=== PATIENT | male | born 2000 ===

== ENCOUNTER 2023-05-08 09:48 | Inpatient (IN) | payer OTHER ==
[~2023-05-08] VITALS: Ht 180.3 cm; Wt 65.8 kg
[2023-05-08 11:29] LABS: BASOPHILS % (AUTO) 0.3 % (0.0-2.0); EOSINOPHILS % (AUTO) 0.2 % (1.0-6.0); HEMATOCRIT 39.4 % (41-53); HEMOGLOBIN 13.5 g/dL (13.5-17.5); LYMPHOCYTES # (AUTO) 1.1 K/uL (1.0-4.8); MEAN CORPUSCULAR HEMOGLOBIN 33.3 pg (26.0-34.0); MEAN CORPUSCULAR HGB CONC 34.4 G/dL (31.0-37.0); MEAN CORPUSCULAR VOLUME 97 fL (80-100); MONOCYTES # (AUTO) 0.9 K/uL (0.1-1.0); MONOCYTES % (AUTO) 9.3 % (2.0-9.0); NEUTROPHILS # (AUTO) 7.5 K/uL (1.8-7.7); NEUTROPHILS % (AUTO) 78.2 % (40.0-70.0); PLATELET COUNT (AUTO) 245 K/uL (150-450); RED BLOOD CELL COUNT(AUTO) 4.07 MIL/uL (4.50-5.90); RED CELL DISTRIBUTION WIDTH 13.3 % (11.5-14.5); WHITE BLOOD COUNT (AUTO) 9.6 K/uL (4.5-11.0)
[2023-05-08 11:44] LABS: ANION GAP 12 mmol/L (8-16); CALCIUM, TOTAL 9.8 mg/dL (8.8-10.5); CARBON DIOXIDE 23 mmol/L (22-29); CHLORIDE 101 mmol/L (98-107); CREATININE 0.98 mg/dL (0.60-1.30); GLOMERULAR FILTR. RATE CALC > 60 mL/min (>60); GLUCOSE,RANDOM 97 mg/dL (70-110); POTASSIUM 3.3 mmol/L (3.5-5.1); SODIUM SERUM 136 mmol/L (136-145); UREA NITROGEN, BLOOD 15 mg/dL (7-18)
[2023-05-08 11:54] LABS: ALANINE AMINOTRANSFERASE 30 U/L (12-78); ALBUMIN 4.8 g/dL (3.4-5.0); ALCOHOL, BLOOD (SERUM) < 3 mg/dL (0-10); ALKALINE PHOSPHATASE 82 U/L (46-116); ASPARTATE AMINOTRANSFERASE 25 U/L (15-37); BILIRUBIN,TOTAL 3.2 mg/dL (0.1-1.0); TOTAL PROTEIN, SERUM 8.4 g/dL (6.4-8.2)
[2023-05-08] MEDS: DiphenhydrAMINE HCL 50 MG/ML VIAL IM ONE (12:14)
[2023-05-08] MEDS: LORazepam 2 MG/ML VIAL IM ONE (12:14)
[2023-05-08] MEDS: HALOPERIDOL LACTATE 5 MG/ML VIAL IM ONE (12:15)
[2023-05-08] MEDS: POTASSIUM CHLORIDE 10% 40 MEQ/30 ML LIQUID UDCUP PO ONE (12:57)
[2023-05-08 13:09] LABS: COVID AG,FIA SOURCE NASAL SWAB
[2023-05-08 13:35] LABS: SARS-COV2 (COVID) ANTIGEN,FIA Negative (Negative)
[2023-05-08 18:11] LABS: GLUCOMETER DEV NAME(LOC) ERT.5; GLUCOSE,POINT OF CARE 102 MG/DL (70-110)
[2023-05-08] MEDS ORDERED: INFLUENZA VIRUS VACCINE QVS 2023-24 (6MO+)/PF 60 MCG/0.5 ML SYRINGE IM. ONE (19:15)
[2023-05-08 19:22] VITALS: BP 123/91; PULSE 104; RESP 17; TEMP 97; O2SAT 96
[2023-05-08 20:14] VITALS: BP 123/91; PULSE 100; RESP 17; TEMP 98; O2SAT 97
[2023-05-09] MEDS: ZOLPIDEM TARTRATE 10 MG TABLET PO PRN (00:43)
[2023-05-09] MEDS: LORazepam 2 MG TABLET PO PRN (08:44)
[2023-05-09] MEDS: HALOPERIDOL 5 MG TABLET PO PRN (08:44)
[2023-05-09 09:33] VITALS: BP 130/89; PULSE 120; RESP 18; TEMP 97.9; O2SAT 95
[2023-05-09] MEDS: RisperiDONE 1 MG TABLET PO SCH (10:27)
[2023-05-09] MEDS ORDERED: CloNIDine HCL 0.1 MG TABLET PO PRN (18:45)
[2023-05-09] MEDS ORDERED: ALBUTEROL SULFATE HFA 90 MCG/PUFF 8 GM INHALER IH PRN (18:45)
[2023-05-09] MEDS ORDERED: DOCUSATE SODIUM 100 MG CAPSULE PO PRN (18:45)
[2023-05-09] MEDS ORDERED: NICOTINE 14 MG/24 HOUR PATCH TD PRN (18:45)
[2023-05-09] MEDS ORDERED: GuaiFENesin/D-METHORPHAN [SUGAR-FREE] 200-20MG/10 ML SYRUP UDCUP PO PRN (18:45)
[2023-05-09] MEDS ORDERED: PETROLATUM,WHITE 28 GM JELLY TP PRN (18:45)
[2023-05-09] MEDS ORDERED: LOPERAMIDE HCL 2 MG CAPSULE PO PRN (18:45)
[2023-05-09] MEDS ORDERED: IBUPROFEN 400 MG TABLET PO PRN (18:45)
[2023-05-09] MEDS ORDERED: MAGNESIUM HYDROXIDE SUSPENSION 30 ML UDCUP PO PRN (18:45)
[2023-05-09] MEDS ORDERED: ACETAMINOPHEN 325 MG TABLET PO PRN (18:45)
[2023-05-09 21:24] VITALS: BP 124/80; PULSE 90; RESP 16; TEMP 97.8; O2SAT 100
[2023-05-10 08:15] VITALS: BP 125/72; PULSE 99; RESP 18; TEMP 97.4; O2SAT 96
[2023-05-10 09:09] LABS: THYROID STIMULATING HORMONE 0.68 uIU/mL (0.36-3.74)
[2023-05-10 09:19] LABS: PH,URINE DRUG SCREEN 5.5 (5.0-8.0)
[2023-05-10 09:23] LABS: HEMOGLOBIN A1C 4.5 % (3.8-5.6)
[2023-05-10 09:24] LABS: CHOL/HDL RATIO 3.3 (4.2-7.3)
[2023-05-10 09:29] LABS: ALCOHOL, URINE DRUG SCREEN NEGATIVE (NEGATIVE); AMPHET/METH SCREEN,URINE NEGATIVE (NEGATIVE); BARBITURATE SCREEN, URINE NEGATIVE (NEGATIVE); BENZODIAZEPINES SCREEN,URINE NEGATIVE (NEGATIVE); CANNABINOID SCREEN,URINE POSITIVE (NEGATIVE); COCAINE SCREEN,URINE NEGATIVE (NEGATIVE); METHADONE SCREEN, URINE NEGATIVE (NEGATIVE); OPIATE SCREEN,URINE NEGATIVE (NEGATIVE); PHENCYCLIDINE SCREEN,URINE NEGATIVE (NEGATIVE)
[2023-05-10] MEDS: ONDANSETRON HCL 4 MG TABLET PO PRN (10:15)
[2023-05-10] MEDS: MAG HYDROX/ALUMINUM HYD/SIMETH ES 30 ML SUSPENSION UDCUP PO PRN (17:08)
== END 2023-05-10 18:00 | disposition admitted as inpatient to this hospital (09) | DRG 885 ==
LOC: EMS 09:50 → B2S 16:07
PROVIDERS: ADMIT Psychiatry & Neurology Child & Adolescent Psychiatry; ATTEND Psychiatry & Neurology Child & Adolescent Psychiatry
DX: F31.9 Bipolar disorder, unspecified (principal); Z20.822 Contact with and (suspected) exposure to COVID-19; E87.6 Hypokalemia; G47.00 Insomnia, unspecified; F41.9 Anxiety disorder, unspecified
CPT/HCPCS: 80053; 80061; 80307; 82962; 83036; 84132; 84443; 85025; 99291; G0480; J1200; J1630; J2060; Q0162